=== PATIENT | female | born 1985 | race Two or more races ===

== ENCOUNTER → 2023-03-10 | Emergency (ER) | payer OTHER ==
[~2023-03-10] VITALS: Ht 165.1 cm; Wt 103.0 kg
[~2023-03-10] MED LIST: AMLODIPINE-OLM1 EAC2; HYDROCHLOROTHIA25 MG; JANUMET 50-5001 EACH
== END | disposition home or self-care (01) ==
LOC: ER 10:21
DX: M62.830 Muscle spasm of back (principal)

== ENCOUNTER 2023-03-14 10:00 | Emergency (ER) | payer OTHER ==
[~2023-03-14] VITALS: Ht 167.6 cm; Wt 103.0 kg
[2023-03-14] MEDS ORDERED: AMLODIPINE BESYL5 MG PO (10:37)
== END 2023-03-14 13:54 | disposition home or self-care (01) ==
LOC: ER 10:00
DX: M54.9 Dorsalgia, unspecified (principal)

== ENCOUNTER 2023-05-17 11:46 | Inpatient (IN) | payer OTHER ==
[~2023-05-17] VITALS: Ht 170.2 cm; Wt 102.5 kg
[~2023-05-17 11:46] MED LIST changes: +AMLODIPINE BESYL5 MG PO
[2023-05-17] MEDS ORDERED: LANTUS SOL100 UNIT/1 SUBCUTANEO (12:00)
[2023-05-17 13:14] LABS: HEMATOCRIT 35.1 % (36.0-45.00); HEMOGLOBIN 11.4 g/dL (12.0-15.00); MEAN CELL VOLUME 73.5 fL (80.00-100.00); MEAN CORPUSCULAR HEMOGLOBIN 23.9 pg (27.00-32.0); MEAN CORPUSCULAR HGB CONC 32.5 g/dl (32.0-36.0); PLATELET COUNT 366 K/uL (150-450); RED BLOOD COUNT 4.77 M/uL (4.00-6.00); RED CELL DISTRIBUTION WIDTH 15.3 % (11.5-14.5)
[2023-05-17 13:40] LABS: ALBUMIN 4.1 gm/dL (3.4-5.0); BILIRUBIN TOTAL 0.41 mg/dL (0.3-1.2); CALCIUM 9.7 mg/dL (8.5-10.1); CREATININE SERUM 1.08 mg/dL (0.55-1.02); GFR 56.19; GLOBULINA 4.4 G/DL (2.4-3.5); POTASSIUM 4.04 mEq/L (3.5-5.1); TOTAL PROTEIN 8.5 gm/dL (6.4-8.2)
[2023-05-17 13:41] LABS: URINE APPEARANCE Clear; URINE BILIRRUBIN Negative (NEGATIVE); URINE BLOOD Small; URINE COLOR Yellow; URINE GLUCOSE Negative (NEGATIVE); URINE LEUKOCYTE Small; URINE NITRATE Negative; URINE PROTEIN Negative (NEGATIVE); URINE UROBILINOGEN 0.2 E.U./dl
[2023-05-17 13:44] LABS: URINE BACTERIA 86.8 uL (0.0-1933); URINE EPITHELIAL CELLS 6.1 uL (0.0-38.8); URINE RBC 54.9 uL (0.0-20.8); URINE WBC 199.3 uL (0.0-23.2)
[2023-05-18 06:26] LABS: HEMATOCRIT 32.1 % (36.0-45.00); HEMOGLOBIN 10.4 g/dL (12.0-15.00); MEAN CELL VOLUME 74.7 fL (80.00-100.00); MEAN CORPUSCULAR HEMOGLOBIN 24.2 pg (27.00-32.0); MEAN CORPUSCULAR HGB CONC 32.5 g/dl (32.0-36.0); PLATELET COUNT 300 K/uL (150-450); RED BLOOD COUNT 4.29 M/uL (4.00-6.00); RED CELL DISTRIBUTION WIDTH 15.2 % (11.5-14.5)
[2023-05-18 06:32] LABS: INR < 0.93; PARTIAL THROMBOPLASTIN TIME 27.4 SECONDS (22.0-34.0); PROTHROMBIN TIME 9.7 SECONDS (9.0-11.5)
[2023-05-18 06:57] LABS: ALBUMIN 3.2 gm/dL (3.4-5.0); BILIRUBIN TOTAL 0.57 mg/dL (0.3-1.2); CALCIUM 8.8 mg/dL (8.5-10.1); CREATININE SERUM 0.89 mg/dL (0.55-1.02); GFR 70.25; GLOBULINA 3.6 G/DL (2.4-3.5); POTASSIUM 4.55 mEq/L (3.5-5.1); TOTAL PROTEIN 6.8 gm/dL (6.4-8.2)
== END 2023-05-19 13:46 | disposition home or self-care (01) | DRG 854 ==
LOC: ER 11:47 → MEDI 18:02
PROVIDERS: General Practice; Internal Medicine; Urology; ADMIT Internal Medicine; ATTEND Internal Medicine
PROC: BW21ZZZ Computerized Tomography (CT Scan) of Abdomen and Pelvis (ICD-10-PCS; 2023-05-17)
PROC: 0T778DZ Dilation of Left Ureter with Intraluminal Device, Via Natural or Artificial Opening Endoscopic (ICD-10-PCS; principal; 2023-05-18 12:15)
DX: A41.9 Sepsis, unspecified organism (principal); N13.2 Hydronephrosis with renal and ureteral calculous obstruction; N39.0 Urinary tract infection, site not specified; N28.89 Other specified disorders of kidney and ureter; E11.9 Type 2 diabetes mellitus without complications; I10 Essential (primary) hypertension; Z79.4 Long term (current) use of insulin

== ENCOUNTER 2023-05-23 09:34 | Outpatient (CLI) | payer OTHER ==
[~2023-05-23 09:34] MED LIST changes: +LANTUS SOL100 UNIT/1 SUBCUTANEO
== END 2023-05-23 09:41 | disposition home or self-care (01) ==
LOC: RAD 09:34
DX: N20.1 Calculus of ureter (principal)

== ENCOUNTER 2023-05-25 09:28 | Outpatient (CLI) | payer OTHER ==
[2023-05-25 10:19] LABS: PH,URINE 5.5 (5.0-8.0); URINE APPEARANCE Cloudy; URINE BILIRRUBIN Negative (NEGATIVE); URINE BLOOD Large; URINE COLOR Orange; URINE GLUCOSE Negative (NEGATIVE); URINE LEUKOCYTE Small; URINE NITRATE Negative; URINE UROBILINOGEN 0.2 E.U./dl
[2023-05-25 10:25] LABS: URINE RBC 8823.1 uL (0.0-20.8)
[2023-05-25 10:27] LABS: HEMATOCRIT 33.6 % (36.0-45.00); HEMOGLOBIN 11.1 g/dL (12.0-15.00); MEAN CELL VOLUME 72.8 fL (80.00-100.00); PLATELET COUNT 359 K/uL (150-450); RED BLOOD COUNT 4.61 M/uL (4.00-6.00); RED CELL DISTRIBUTION WIDTH 15.5 % (11.5-14.5)
[2023-05-25 10:40] LABS: CALCIUM 9.4 mg/dL (8.5-10.1); CREATININE SERUM 0.66 mg/dL (0.55-1.02); GFR 99.19; POTASSIUM 4.58 mEq/L (3.5-5.1)
[2023-05-25 10:42] LABS: INR < 0.93; PARTIAL THROMBOPLASTIN TIME 27.4 SECONDS (22.0-34.0); PROTHROMBIN TIME 9.8 SECONDS (9.0-11.5)
[2023-05-25 10:54] LABS: URINE PROTEIN 300 (NEGATIVE)
== END 2023-05-25 09:29 | disposition home or self-care (01) ==
LOC: LAB 09:28
PROVIDERS: ATTEND Urology
DX: N20.0 Calculus of kidney (principal); N20.1 Calculus of ureter

== ENCOUNTER 2023-06-13 08:48 | Outpatient (CLI) | payer OTHER | END 2023-06-13 08:52 | disposition home or self-care (01) | LOC: RAD 08:48 | PROVIDERS: ATTEND Urology | DX: N20.1 Calculus of ureter (principal) ==

== ENCOUNTER 2023-07-16 09:07 | Outpatient (CLI) | payer OTHER ==
[2023-07-16 10:32] LABS: PH,URINE 6.5 (5.0-8.0); URINE APPEARANCE Clear; URINE BILIRRUBIN Negative (NEGATIVE); URINE BLOOD Negative; URINE COLOR Yellow; URINE GLUCOSE Negative (NEGATIVE); URINE LEUKOCYTE Negative; URINE NITRATE Negative; URINE PROTEIN Negative (NEGATIVE); URINE UROBILINOGEN 0.2 E.U./dl
[2023-07-16 10:39] LABS: URINE BACTERIA 55.4 uL (0.0-1933); URINE EPITHELIAL CELLS 17.6 uL (0.0-38.8); URINE RBC 7.9 uL (0.0-20.8); URINE WBC 6.9 uL (0.0-23.2)
[2023-07-16 10:49] LABS: HEMATOCRIT 34.2 % (36.0-45.00); HEMOGLOBIN 11.2 g/dL (12.0-15.00); MEAN CELL VOLUME 74.4 fL (80.00-100.00); MEAN CORPUSCULAR HEMOGLOBIN 24.5 pg (27.00-32.0); MEAN CORPUSCULAR HGB CONC 32.9 g/dl (32.0-36.0); PLATELET COUNT 319 K/uL (150-450); RED BLOOD COUNT 4.59 M/uL (4.00-6.00); RED CELL DISTRIBUTION WIDTH 14.8 % (11.5-14.5)
[2023-07-16 11:03] LABS: ALBUMIN 3.5 gm/dL (3.4-5.0); BILIRUBIN TOTAL 0.31 mg/dL (0.3-1.2); CALCIUM 8.9 mg/dL (8.5-10.1); CHOL HDL RATIO 4.9 (0-5.0); CREATININE SERUM 0.68 mg/dL (0.55-1.02); GFR 95.83; GLOBULINA 3.5 G/DL (2.4-3.5); POTASSIUM 4.7 mEq/L (3.5-5.1)
== END 2023-07-16 09:13 | disposition home or self-care (01) ==
LOC: LAB 09:07
PROVIDERS: ATTEND Internal Medicine Endocrinology, Diabetes & Metabolism
DX: E11.65 Type 2 diabetes mellitus with hyperglycemia (principal); E78.5 Hyperlipidemia, unspecified

== ENCOUNTER → 2023-11-05 08:26 | Outpatient (CLI) | payer OTHER ==
[~2023-11-05 08:26] MED LIST changes: +EZETIMIBE10 MG PO
[2023-11-05 09:39] LABS: URINE APPEARANCE Clear; URINE BILIRRUBIN Negative (NEGATIVE); URINE BLOOD Negative; URINE COLOR Yellow; URINE GLUCOSE Negative (NEGATIVE); URINE LEUKOCYTE Negative; URINE NITRATE Negative; URINE PROTEIN Negative (NEGATIVE); URINE UROBILINOGEN 0.2 E.U./dl
[2023-11-05 09:43] LABS: URINE BACTERIA 54.1 uL (0.0-1933); URINE EPITHELIAL CELLS 6.8 uL (0.0-38.8); URINE RBC 5.3 uL (0.0-20.8)
[2023-11-05 09:48] LABS: URINE WBC 0.9 uL (0.0-23.2)
[2023-11-05 09:59] LABS: HEMATOCRIT 34.3 % (36.0-45.00); HEMOGLOBIN 11.3 g/dL (12.0-15.00); MEAN CELL VOLUME 73.1 fL (80.00-100.00); MEAN CORPUSCULAR HEMOGLOBIN 24.2 pg (27.00-32.0); MEAN CORPUSCULAR HGB CONC 33.1 g/dl (32.0-36.0); PLATELET COUNT 313 K/uL (150-450); RED BLOOD COUNT 4.69 M/uL (4.00-6.00); RED CELL DISTRIBUTION WIDTH 15.3 % (11.5-14.5)
[2023-11-05 10:19] LABS: ALBUMIN 3.8 gm/dL (3.4-5.0); BILIRUBIN TOTAL 0.34 mg/dL (0.3-1.2); CALCIUM 9.1 mg/dL (8.5-10.1); CHOL HDL RATIO 4.2 (0-5.0); CREATININE SERUM 0.85 mg/dL (0.55-1.02); GFR 74.07; GLOBULINA 3.7 G/DL (2.4-3.5); POTASSIUM 4.99 mEq/L (3.5-5.1); TOTAL PROTEIN 7.5 gm/dL (6.4-8.2)
== END | disposition home or self-care (01) ==
LOC: LAB 08:26
PROVIDERS: ATTEND Internal Medicine Endocrinology, Diabetes & Metabolism
DX: E11.65 Type 2 diabetes mellitus with hyperglycemia (principal); E78.5 Hyperlipidemia, unspecified

== ENCOUNTER 2023-12-24 09:43 | Outpatient (CLI) | payer OTHER ==
[2023-12-24 11:44] LABS: HEMATOCRIT 35.2 % (36.0-45.00); HEMOGLOBIN 11.6 g/dL (12.0-15.00); MEAN CELL VOLUME 74.9 fL (80.00-100.00); MEAN CORPUSCULAR HEMOGLOBIN 24.7 pg (27.00-32.0); PLATELET COUNT 321 K/uL (150-450); RED CELL DISTRIBUTION WIDTH 14.6 % (11.5-14.5)
[2023-12-24 12:18] LABS: BILIRUBIN TOTAL 0.29 mg/dL (0.3-1.2); CALCIUM 9.8 mg/dL (8.5-10.1); CREATININE SERUM 0.81 mg/dL (0.55-1.02); GFR 78.31; GLOBULINA 3.7 G/DL (2.4-3.5); POTASSIUM 5.27 mEq/L (3.5-5.1); TOTAL PROTEIN 7.7 gm/dL (6.4-8.2)
== END 2023-12-24 11:12 | disposition home or self-care (01) ==
LOC: LAB 09:43
PROVIDERS: ATTEND Internal Medicine Cardiovascular Disease
DX: D64.9 Anemia, unspecified (principal); R10.9 Unspecified abdominal pain; E78.5 Hyperlipidemia, unspecified; E11.9 Type 2 diabetes mellitus without complications; R73.09 Other abnormal glucose

== ENCOUNTER 2023-12-26 08:02 | Outpatient (CLI) | payer OTHER | END 2023-12-26 08:03 | disposition home or self-care (01) | LOC: NUCLEAR 08:02 | PROVIDERS: ATTEND Internal Medicine Cardiovascular Disease | DX: F84.0 Autistic disorder (principal) ==

== ENCOUNTER 2023-12-26 10:42 | Outpatient (CLI) | payer OTHER | END 2023-12-26 10:56 | disposition home or self-care (01) | LOC: MRI 10:42 | DX: M54.2 Cervicalgia (principal) | CPT/HCPCS: 72141 ==

== ENCOUNTER 2024-01-01 16:23 | Emergency (ER) | payer OTHER ==
[~2024-01-01] VITALS: Ht 167.6 cm; Wt 104.3 kg
[2024-01-01] MEDS ORDERED: CEFTRIAXONE SODIUM 2,000 MG VIAL IV ONE (17:15)
[2024-01-01] MEDS ORDERED: KETOROLAC TROMETHAMINE 15 MG VIAL IV ONE (17:15)
[2024-01-01] MEDS ORDERED: CEFTRIAXONE SODIUM 2,000 MG VIAL ONE (17:23)
[2024-01-01] MEDS ORDERED: KETOROLAC TROMETHAMINE 30 MG VIAL ONE (17:23)
[2024-01-01 18:16] LABS: URINE APPEARANCE Turbid; URINE BILIRRUBIN Moderate (NEGATIVE); URINE BLOOD Small; URINE GLUCOSE Negative (NEGATIVE); URINE KETONE Negative (NEGATIVE); URINE LEUKOCYTE Large; URINE NITRATE Positive
[2024-01-01 18:19] LABS: URINE BACTERIA 7077.3 uL (0.0-1933); URINE CAST 1.83 uL (0.0-1.40); URINE EPITHELIAL CELLS 37.7 uL (0.0-38.8); URINE RBC 324.6 uL (0.0-20.8); URINE WBC 2334.6 uL (0.0-23.2)
[2024-01-01 18:24] LABS: HEMATOCRIT 28.9 % (36.0-45.00); HEMOGLOBIN 9.7 g/dL (12.0-15.00); MEAN CELL VOLUME 74.8 fL (80.00-100.00); MEAN CORPUSCULAR HEMOGLOBIN 25.1 pg (27.00-32.0); MEAN CORPUSCULAR HGB CONC 33.5 g/dl (32.0-36.0); PLATELET COUNT 218 K/uL (150-450); RED BLOOD COUNT 3.86 M/uL (4.00-6.00); RED CELL DISTRIBUTION WIDTH 14.4 % (11.5-14.5)
[2024-01-01 18:35] LABS: CALCIUM 8.8 mg/dL (8.5-10.1); CREATININE SERUM 1.13 mg/dL (0.55-1.02); GFR 53.33; POTASSIUM 3.92 mEq/L (3.5-5.1)
[2024-01-01 18:45] LABS: URINE COLOR ORANGE; URINE PROTEIN 100 (NEGATIVE)
[2024-01-01 18:46] LABS: URINE CRYSTALS FEW /HPF; URINE MUCUS SCANT
[2024-01-01] MEDS ORDERED: 0.9 % SODIUM CHLORIDE 500 ML IV ONE (20:45)
[2024-01-01] MEDS ORDERED: levoFLOXacin IN DEXTROSE 5 % 5 MG/ML PIGGYBAG IV ONE (20:45)
[2024-01-01] MEDS ORDERED: ACETAMINOPHEN 500 MG GEL..CAP PO ONE ×2 (20:45→20:47)
[2024-01-01] MEDS ORDERED: PANTOPRAZOLE SODIUM 40 MG/VIAL VIAL IV PUSH ONE (21:00)
== END 2024-01-01 22:34 | disposition left against medical advice (07) ==
LOC: ER 16:25
PROVIDERS: General Practice
DX: N12 Tubulo-interstitial nephritis, not specified as acute or chronic (principal); N30.80 Other cystitis without hematuria; I10 Essential (primary) hypertension; K43.9 Ventral hernia without obstruction or gangrene

== ENCOUNTER → 2024-01-11 09:11 | Outpatient (CLI) | payer OTHER ==
[2024-01-11 09:51] LABS: HEMATOCRIT 33.2 % (36.0-45.00); MEAN CELL VOLUME 74.3 fL (80.00-100.00); MEAN CORPUSCULAR HEMOGLOBIN 24.7 pg (27.00-32.0); MEAN CORPUSCULAR HGB CONC 33.2 g/dl (32.0-36.0); PLATELET COUNT 403 K/uL (150-450); RED BLOOD COUNT 4.47 M/uL (4.00-6.00); RED CELL DISTRIBUTION WIDTH 14.6 % (11.5-14.5)
[2024-01-11 09:56] LABS: PH,URINE 6.5 (5.0-8.0); URINE APPEARANCE Clear; URINE BILIRRUBIN Negative (NEGATIVE); URINE BLOOD Negative; URINE COLOR Yellow; URINE GLUCOSE Negative (NEGATIVE); URINE KETONE Negative (NEGATIVE); URINE LEUKOCYTE Negative; URINE NITRATE Negative; URINE PROTEIN Negative (NEGATIVE); URINE UROBILINOGEN 0.2 E.U./dl
[2024-01-11 09:57] LABS: URINE EPITHELIAL CELLS 3.8 uL (0.0-38.8); URINE RBC 6.4 uL (0.0-20.8); URINE WBC 2.9 uL (0.0-23.2)
[2024-01-11 10:13] LABS: URINE BACTERIA 3.7 uL (0.0-1933)
[2024-01-11 10:28] LABS: ALBUMIN 3.6 gm/dL (3.4-5.0); CALCIUM 9.3 mg/dL (8.5-10.1); CREATININE SERUM 0.75 mg/dL (0.55-1.02); GFR 85.58; PHOSPHOROUS 3.2 mg/dL (2.5-4.9); POTASSIUM 4.34 mEq/L (3.5-5.1)
[2024-01-11 10:42] LABS: URIC ACID 4.7 mg/dL (2.5-7.5)
== END | disposition home or self-care (01) ==
LOC: LAB 09:11
PROVIDERS: ATTEND Specialist/Technologist, Other Nephrology
DX: N18.30 Chronic kidney disease, stage 3 unspecified (principal); E11.21 Type 2 diabetes mellitus with diabetic nephropathy; D63.1 Anemia in chronic kidney disease; N30.00 Acute cystitis without hematuria; E78.5 Hyperlipidemia, unspecified; E03.9 Hypothyroidism, unspecified

== ENCOUNTER 2024-01-11 09:56 | Outpatient (CLI) | payer OTHER | END 2024-01-11 10:04 | disposition home or self-care (01) | LOC: SONOGRAMA 09:56 | PROVIDERS: ATTEND Specialist/Technologist, Other Nephrology | DX: R10.9 Unspecified abdominal pain (principal); N18.30 Chronic kidney disease, stage 3 unspecified; N31.9 Neuromuscular dysfunction of bladder, unspecified ==

== ENCOUNTER → 2024-02-04 07:43 | Outpatient (CLI) | payer OTHER ==
[2024-02-04 10:41] LABS: PH,URINE 5.5 (5.0-8.0); URINE APPEARANCE Cloudy; URINE BILIRRUBIN Small (NEGATIVE); URINE BLOOD Large; URINE COLOR Red; URINE GLUCOSE Negative (NEGATIVE); URINE KETONE Negative (NEGATIVE); URINE LEUKOCYTE Moderate; URINE NITRATE Negative; URINE UROBILINOGEN 0.2 E.U./dl
[2024-02-04 10:46] LABS: URINE BACTERIA 1731.2 uL (0.0-1933); URINE EPITHELIAL CELLS 7.4 uL (0.0-38.8); URINE WBC 127.5 uL (0.0-23.2)
[2024-02-04 11:04] LABS: URINE CAST 0.34 uL (0.0-1.40); URINE PROTEIN 100 (NEGATIVE); URINE RBC > 10558.9 uL (0.0-20.8)
[2024-02-04 11:14] LABS: CALCIUM 9.2 mg/dL (8.5-10.1); CREATININE SERUM 0.76 mg/dL (0.55-1.02); GFR 84.29; POTASSIUM 3.95 mEq/L (3.5-5.1); T4 FREE 1.02 NG/ML (0.76-1.46); TSH 3.15 uIU/mL (0.358-3.74)
[2024-02-06 10:05] LABS: CORTISOL 8.67 ug/dl; VITAMIN D3 25 HYDROXY 28.46 ng/ml (30-120)
[2024-02-07 15:07] LABS: C PEPTIDE 2.3 ng/mL (1.1-4.4); PROGESTERONA 0.1 ng/mL (.); PROLACTIN 10.8 ng/mL (4.8-33.4)
== END | disposition home or self-care (01) ==
LOC: LAB 07:43
DX: R10.9 Unspecified abdominal pain (principal); E10.65 Type 1 diabetes mellitus with hyperglycemia; N39.0 Urinary tract infection, site not specified; E55.9 Vitamin D deficiency, unspecified; R80.9 Proteinuria, unspecified; E53.8 Deficiency of other specified B group vitamins; R94.6 Abnormal results of thyroid function studies; E23.0 Hypopituitarism; E22.1 Hyperprolactinemia; E27.40 Unspecified adrenocortical insufficiency; Z32.00 Encounter for pregnancy test, result unknown; D44.10 Neoplasm of uncertain behavior of unspecified adrenal gland

== ENCOUNTER 2024-02-25 09:31 | Outpatient (CLI) | payer OTHER ==
[2024-02-25 10:56] LABS: CREATININE SERUM 0.81 mg/dL (0.6-1.0)
[2024-02-25 11:06] LABS: URINE PROT QUANT 24HR 7.9 MG/DL
[2024-02-25 11:13] LABS: NA URINE 24 HR 199.95 mmol/24h (40-220); URINE PROT QUANT 24 HR 169.85 MG/24HR (42-225)
[2024-02-25 14:33] LABS: CALCIUM 9.6 mg/dL (8.5-10.1); CREATININE SERUM 0.87 mg/dL (0.55-1.02); GFR 72.11; POTASSIUM 4.59 mEq/L (3.5-5.1)
[2024-02-29 11:11] LABS: C ur 20.5 mg/dL (Not Estab.); Magne u 5.3 mg/dL (Not Estab.); Phos ur 43.1 mg/dL (Not Estab.)
== END 2024-02-25 09:43 | disposition home or self-care (01) ==
LOC: LAB 09:31
DX: N20.0 Calculus of kidney (principal); N20.1 Calculus of ureter

== ENCOUNTER → 2024-06-09 09:08 | Outpatient (CLI) | payer OTHER ==
[2024-06-09 10:27] LABS: URINE APPEARANCE Clear; URINE BILIRRUBIN Negative (NEGATIVE); URINE BLOOD Trace; URINE COLOR Yellow; URINE GLUCOSE Negative (NEGATIVE); URINE KETONE Negative (NEGATIVE); URINE LEUKOCYTE Negative; URINE NITRATE Negative; URINE PROTEIN Negative (NEGATIVE); URINE UROBILINOGEN 0.2 E.U./dl
[2024-06-09 10:29] LABS: URINE BACTERIA 242.2 uL (0.0-1933); URINE EPITHELIAL CELLS 18.1 uL (0.0-38.8); URINE RBC 3.6 uL (0.0-20.8); URINE WBC 9.1 uL (0.0-23.2)
[2024-06-09 10:58] LABS: HEMATOCRIT 34.5 % (36.0-45.00); HEMOGLOBIN 11.3 g/dL (12.0-15.00); MEAN CELL VOLUME 74.7 fL (80.00-100.00); MEAN CORPUSCULAR HEMOGLOBIN 24.5 pg (27.00-32.0); MEAN CORPUSCULAR HGB CONC 32.8 g/dl (32.0-36.0); PLATELET COUNT 346 K/uL (150-450); RED BLOOD COUNT 4.62 M/uL (4.00-6.00); RED CELL DISTRIBUTION WIDTH 14.9 % (11.5-14.5)
[2024-06-09 11:42] LABS: ALBUMIN 3.7 gm/dL (3.4-5.0); BILIRUBIN TOTAL 0.3 mg/dL (0.3-1.2); BILIRUBIN,CONJUGATED 0.11 mg/dL (0.0-0.2); BILIRUBIN,UNCONJUGATED 0.19 mg/dL (0.0-0.6); CALCIUM 9.1 mg/dL (8.5-10.1); CHOL HDL RATIO 3.7 (0-5.0); CREATININE SERUM 0.74 mg/dL (0.55-1.02); GFR 86.49; PHOSPHOROUS 2.6 mg/dL (2.5-4.9); POTASSIUM 4.89 mEq/L (3.5-5.1); TOTAL PROTEIN 7.3 gm/dL (6.4-8.2)
== END | disposition home or self-care (01) ==
LOC: LAB 09:08
DX: D64.9 Anemia, unspecified (principal); R10.9 Unspecified abdominal pain; K76.0 Fatty (change of) liver, not elsewhere classified; E11.65 Type 2 diabetes mellitus with hyperglycemia; N39.0 Urinary tract infection, site not specified; R80.9 Proteinuria, unspecified

== ENCOUNTER 2024-07-07 07:43 | Outpatient (CLI) | payer OTHER ==
[2024-07-07 08:24] LABS: HEMOGLOBIN 11.1 g/dL (12.0-15.00); MEAN CELL VOLUME 75.2 fL (80.00-100.00); MEAN CORPUSCULAR HEMOGLOBIN 24.4 pg (27.00-32.0); MEAN CORPUSCULAR HGB CONC 32.5 g/dl (32.0-36.0); PLATELET COUNT 345 K/uL (150-450); RED BLOOD COUNT 4.53 M/uL (4.00-6.00); RED CELL DISTRIBUTION WIDTH 15.4 % (11.5-14.5)
[2024-07-07 09:17] LABS: ALBUMIN 3.8 gm/dL (3.4-5.0); BILIRUBIN TOTAL 0.36 mg/dL (0.3-1.2); CALCIUM 8.9 mg/dL (8.5-10.1); CHOL HDL RATIO 4.1 (0-5.0); CREATININE SERUM 0.87 mg/dL (0.55-1.02); GFR 71.75; GLOBULINA 3.5 G/DL (2.4-3.5); POTASSIUM 4.64 mEq/L (3.5-5.1); TOTAL PROTEIN 7.3 gm/dL (6.4-8.2)
== END 2024-07-07 07:45 | disposition home or self-care (01) ==
LOC: LAB 07:43
PROVIDERS: ATTEND Internal Medicine Cardiovascular Disease
DX: D64.9 Anemia, unspecified (principal); R10.9 Unspecified abdominal pain; E78.5 Hyperlipidemia, unspecified; E11.9 Type 2 diabetes mellitus without complications; R73.09 Other abnormal glucose

== ENCOUNTER 2024-09-17 08:07 | Outpatient (CLI) | payer OTHER ==
[2024-09-17 08:41] LABS: URINE APPEARANCE Clear; URINE BILIRRUBIN Negative (NEGATIVE); URINE BLOOD Negative; URINE COLOR Yellow; URINE GLUCOSE Negative (NEGATIVE); URINE KETONE Negative (NEGATIVE); URINE LEUKOCYTE Negative; URINE NITRATE Negative; URINE PROTEIN Negative (NEGATIVE); URINE UROBILINOGEN 0.2 E.U./dl
[2024-09-17 08:47] LABS: URINE EPITHELIAL CELLS 4.5 uL (0.0-38.8); URINE RBC 3.8 uL (0.0-20.8)
[2024-09-17 08:58] LABS: BASO % 0.7 % (0.1-1.2); EOS # 0.23 (0.04-0.54); EOS % 2.8 % (0.7-7.0); HEMATOCRIT 35.1 % (34.1-44.9); HEMOGLOBIN 11.2 g/dL (11.2-15.7); LYMPH # 2.47 (1.18-3.74); LYMPH % 30.3 % (19.3-53.1); MEAN CORPUSCULAR HEMOGLOBIN 24.6 pg (25.6-32.2); MONO % 4.9 % (4.7-12.5); NEUT # 4.97 (1.56-6.13); NEUT % 61.1 % (34.0-71.1); PLATELET COUNT 343 K/uL (163-369); RED BLOOD COUNT 4.56 M/uL (3.93-5.22)
[2024-09-17 08:59] LABS: URINE WBC 1.2 uL (0.0-23.2)
[2024-09-17 10:29] LABS: ALBUMIN 3.8 gm/dL (3.4-5.0); BILIRUBIN TOTAL 0.28 mg/dL (0.3-1.2); BILIRUBIN,CONJUGATED 0.11 mg/dL (0.0-0.2); BILIRUBIN,UNCONJUGATED 0.17 mg/dL (0.0-0.6); CALCIUM 8.7 mg/dL (8.5-10.1); CHOL HDL RATIO 3.8 (0-5.0); CREATININE SERUM 0.79 mg/dL (0.55-1.02); GFR 80.2; PHOSPHOROUS 2.3 mg/dL (2.5-4.9); POTASSIUM 4.98 mEq/L (3.5-5.1); T4 FREE 1.05 NG/ML (0.76-1.46); TOTAL PROTEIN 7.2 gm/dL (6.4-8.2); TSH 2.69 uIU/mL (0.358-3.74)
== END 2024-09-17 08:08 | disposition home or self-care (01) ==
LOC: LAB 08:07
DX: D64.9 Anemia, unspecified (principal); R10.9 Unspecified abdominal pain; K76.0 Fatty (change of) liver, not elsewhere classified; E11.65 Type 2 diabetes mellitus with hyperglycemia; N39.0 Urinary tract infection, site not specified; R80.9 Proteinuria, unspecified; E55.9 Vitamin D deficiency, unspecified; E53.8 Deficiency of other specified B group vitamins; R94.6 Abnormal results of thyroid function studies

== ENCOUNTER 2024-12-08 07:49 | Outpatient (CLI) | payer OTHER ==
[2024-12-08 08:31] LABS: BASO % 0.7 % (0.1-1.2); EOS # 0.24 (0.04-0.54); EOS % 3.1 % (0.7-7.0); LYMPH # 2.51 (1.18-3.74); LYMPH % 32.8 % (19.3-53.1); MEAN PLATELET VOLUME 9.70 fl (9.4-12.4); MONO # 0.45 (0.24-0.82); MONO % 5.9 % (4.7-12.5); NEUT # 4.38 (1.56-6.13); NEUT % 57.2 % (34.0-71.1); RED CELL DISTRIBUTION WIDTH 13.6 % (11.6-14.4)
[2024-12-08 08:33] LABS: URINE APPEARANCE Clear; URINE BILIRRUBIN Negative (NEGATIVE); URINE BLOOD Negative; URINE COLOR Yellow; URINE GLUCOSE Negative (NEGATIVE); URINE KETONE Trace (NEGATIVE); URINE LEUKOCYTE Negative; URINE NITRATE Negative; URINE PROTEIN Negative (NEGATIVE); URINE UROBILINOGEN 0.2 E.U./dl
[2024-12-08 08:36] LABS: URINE BACTERIA 148.7 uL (0.0-1933); URINE EPITHELIAL CELLS 23.8 uL (0.0-38.8); URINE RBC 7.0 uL (0.0-20.8); URINE WBC 4.4 uL (0.0-23.2)
[2024-12-08 08:39] LABS: URINE CAST 0.29 uL (0.0-1.40)
[2024-12-08 09:13] LABS: ALT/SGPT 36 U/L (12-78); AST/SGOT 23 U/L (15-37); BILIRUBIN TOTAL 0.32 mg/dL (0.3-1.2); BILIRUBIN,CONJUGATED < 0.10 mg/dL (0.0-0.2); BUN CREA RATIO 19 (7.0-25.0); CHOL HDL RATIO 3.8 (0-5.0); CREATININE SERUM 0.78 mg/dL (0.55-1.02); GFR 81.39; GLUCOSE FASTING 140 mg/dL (65-100); HDL 34 mg/dl (40-60); LDL 78 mg/dl (0-130); OSMOLALITY SERUM 281 MOSM/KG (275-295); T4 FREE 1.05 NG/ML (0.76-1.46); TSH 2.920 uIU/mL (0.358-3.74); VLDL 17 (0-39)
== END 2024-12-08 07:51 | disposition home or self-care (01) ==
LOC: LAB 07:49
DX: D64.9 Anemia, unspecified (principal); R10.9 Unspecified abdominal pain; K76.0 Fatty (change of) liver, not elsewhere classified; E11.65 Type 2 diabetes mellitus with hyperglycemia; N39.0 Urinary tract infection, site not specified; R80.9 Proteinuria, unspecified; R94.6 Abnormal results of thyroid function studies

== ENCOUNTER 2025-01-05 09:25 | Outpatient (CLI) | payer OTHER ==
[2025-01-05 10:48] LABS: BASO % 0.6 % (0.1-1.2); EOS # 0.10 (0.04-0.54); EOS % 1.1 % (0.7-7.0); LYMPH # 2.99 (1.18-3.74); LYMPH % 33.7 % (19.3-53.1); MEAN PLATELET VOLUME 9.20 fl (9.4-12.4); MONO # 0.49 (0.24-0.82); MONO % 5.5 % (4.7-12.5); NEUT # 5.23 (1.56-6.13); NEUT % 58.9 % (34.0-71.1); RED CELL DISTRIBUTION WIDTH 13.2 % (11.6-14.4)
[2025-01-05 11:12] LABS: ALT/SGPT 33.0 U/L (12-78); AST/SGOT 23.0 U/L (15-37); BILIRUBIN TOTAL 0.35 mg/dL (0.3-1.2); BUN CREA RATIO 16.0 (7.0-25.0); CHOL HDL RATIO 4.4 (0-5.0); CREATININE SERUM 0.74 mg/dL (0.55-1.02); GFR 86.49; GLOBULINA 3.3 G/DL (2.4-3.5); GLUCOSE FASTING 117.0 mg/dL (65-100); HDL 29.0 mg/dl (40-60); LDL 76.0 mg/dl (0-130); OSMOLALITY SERUM 276.0 MOSM/KG (275-295); VLDL 21.0 (0-39)
== END 2025-01-05 09:27 | disposition home or self-care (01) ==
LOC: LAB 09:25
PROVIDERS: ATTEND Internal Medicine Cardiovascular Disease
DX: D64.9 Anemia, unspecified (principal); R10.9 Unspecified abdominal pain; E78.5 Hyperlipidemia, unspecified

== ENCOUNTER 2025-02-23 08:51 | Outpatient (CLI) | payer OTHER ==
[2025-02-23 09:49] LABS: URINE APPEARANCE Clear; URINE BILIRRUBIN Negative (NEGATIVE); URINE BLOOD Negative; URINE COLOR Yellow; URINE GLUCOSE Negative (NEGATIVE); URINE KETONE Negative (NEGATIVE); URINE LEUKOCYTE Negative; URINE NITRATE Negative; URINE PROTEIN Negative (NEGATIVE); URINE UROBILINOGEN 0.2 E.U./dl
[2025-02-23 09:52] LABS: URINE BACTERIA 46.7 uL (0.0-1933); URINE EPITHELIAL CELLS 13.0 uL (0.0-38.8); URINE RBC 9.6 uL (0.0-20.8)
[2025-02-23 09:56] LABS: URINE CAST 0.00 uL (0.0-1.40); URINE WBC 1.2 uL (0.0-23.2)
== END 2025-02-23 09:08 | disposition home or self-care (01) ==
LOC: RAD 08:51 → EDSTATUS 08:51 → RAD 09:08
PROVIDERS: ATTEND Urology
DX: N20.0 Calculus of kidney (principal)

== ENCOUNTER 2025-03-06 09:24 | Emergency (ER) | payer OTHER ==
[~2025-03-06] VITALS: Ht 165.1 cm; Wt 93.4 kg
[2025-03-06 10:06] VITALS: BP 114/69; O2SAT 98
[2025-03-06] MEDS ORDERED: DICLOFENAC SODI50 MG PO (11:14)
[2025-03-06] MEDS ORDERED: KETOROLAC TROMETHAMINE 30 MG VIAL IM ONE (11:15)
[2025-03-06] MEDS ORDERED: KETOROLAC TROMETHAMINE 30 MG VIAL ONE (11:23)
== END 2025-03-06 11:58 | disposition home or self-care (01) ==
LOC: ER 09:24
DX: M54.9 Dorsalgia, unspecified (principal); I10 Essential (primary) hypertension; E11.9 Type 2 diabetes mellitus without complications; Z79.4 Long term (current) use of insulin

== ENCOUNTER 2025-03-30 09:29 | Outpatient (CLI) | payer OTHER ==
[~2025-03-30 09:29] MED LIST changes: +DICLOFENAC SODI50 MG PO
[2025-03-30 10:40] LABS: BASO % 0.5 % (0.1-1.2); EOS # 0.22 (0.04-0.54); EOS % 1.9 % (0.7-7.0); LYMPH # 3.03 (1.18-3.74); LYMPH % 26.1 % (19.3-53.1); MEAN PLATELET VOLUME 9.50 fl (9.4-12.4); MONO # 0.52 (0.24-0.82); MONO % 4.5 % (4.7-12.5); NEUT # 7.74 (1.56-6.13); NEUT % 66.8 % (34.0-71.1); RED CELL DISTRIBUTION WIDTH 13.3 % (11.6-14.4)
[2025-03-30 10:43] LABS: URINE APPEARANCE Clear; URINE BILIRRUBIN Negative (NEGATIVE); URINE BLOOD Negative; URINE COLOR Yellow; URINE GLUCOSE Negative (NEGATIVE); URINE KETONE Negative (NEGATIVE); URINE LEUKOCYTE Negative; URINE NITRATE Negative; URINE PROTEIN Negative (NEGATIVE); URINE UROBILINOGEN 0.2 E.U./dl
[2025-03-30 10:53] LABS: URINE BACTERIA 104.3 uL (0.0-1933); URINE CAST 0.00 uL (0.0-1.40); URINE EPITHELIAL CELLS 5.2 uL (0.0-38.8); URINE RBC 8.0 uL (0.0-20.8); URINE WBC 3.2 uL (0.0-23.2)
[2025-03-30 11:22] LABS: ALT/SGPT 23 U/L (12-78); AST/SGOT 15 U/L (15-37); BILIRUBIN TOTAL 0.26 mg/dL (0.3-1.2); BILIRUBIN,CONJUGATED < 0.10 mg/dL (0.0-0.2); BUN CREA RATIO 20 (7.0-25.0); CHOL HDL RATIO 3.8 (0-5.0); CREATININE SERUM 0.90 mg/dL (0.55-1.02); GFR 69.00; GLUCOSE FASTING 117 mg/dL (65-100); HDL 34 mg/dl (40-60); LDL 76 mg/dl (0-130); OSMOLALITY SERUM 282 MOSM/KG (275-295); VLDL 19 (0-39)
== END 2025-03-30 09:36 | disposition home or self-care (01) ==
LOC: LAB 09:29
DX: E78.5 Hyperlipidemia, unspecified (principal); D64.9 Anemia, unspecified; N39.0 Urinary tract infection, site not specified; R80.9 Proteinuria, unspecified; R10.9 Unspecified abdominal pain; E11.65 Type 2 diabetes mellitus with hyperglycemia; K76.0 Fatty (change of) liver, not elsewhere classified